=== PATIENT | female | born 1940 | race Caucasian/White ===

== ENCOUNTER 2022-12-27 05:08 | Day surgery (SDC) | payer BC ==
[2022-12-25 16:01] VITALS: BMI 21.9
[2022-12-27 08:29] VITALS: TEMP 97.8
[2022-12-27 08:51] VITALS: RESP 18
[2022-12-27 08:59] VITALS: BP 117/54; PULSE 56
== END 2022-12-27 08:59 | disposition home or self-care (01) ==
LOC: JASU-ENDO 05:08
PROVIDERS: ATTEND Internal Medicine Gastroenterology
PROC: 0DBK8ZX Excision of Ascending Colon, Via Natural or Artificial Opening Endoscopic, Diagnostic (ICD-10-PCS; principal; 2022-12-27 08:00)
DX: Z12.11 Encounter for screening for malignant neoplasm of colon (principal); D12.2 Benign neoplasm of ascending colon; K57.30 Diverticulosis of large intestine without perforation or abscess without bleeding; Z86.010 Personal history of colon polyps